=== PATIENT | female | born 1940 | race Caucasian/White ===

== ENCOUNTER 2016-04-15 15:32 | Emergency (ER) | payer MEDICARE, MEDICAID ==
[2016-04-15] MEDS ORDERED: ACETAMINOPHEN 500 MG TABLET ONE (16:10)
[2016-04-15 16:41] LABS: ALB/GLOB RATIO 1.6 (>1.0); ALBUMIN 3.9 gm/dL (3.5-5.7); CALCIUM 9.5 mg/dL (8.6-10.3)
--- NOTE | 2016-04-15 16:46 | RAD ---
Name: TEA HELMS Exam: Two-view chest Comparison: 06/22/2014 Clinical history: Shortness of breath and chest pain Findings: 2 views of the chest are submitted. The heart mediastinum and hilar structures are within normal limits. There is no failure, infiltrate, pleural effusion or pneumothorax. Regional skeleton is within normal limits. There is been prior left shoulder replacement and cervical spine surgery. Impression: No acute cardiopulmonary process
[2016-04-15 16:48] LABS: TROPONIN I < 0.01 ng/ml (0.0-0.06)
[2016-04-15 16:51] LABS: CKMB ISOENZYME 1.2 ng/ml (0.6-6.3)
[2016-04-15 17:05] LABS: SPECIFIC GRAVITY 1.015 (1.001-1.030); URINE BILIRUBIN NEGATIVE (NEGATIVE); URINE BLOOD NEGATIVE (NEGATIVE); URINE GLUCOSE (UA) NEGATIVE (NEGATIVE); URINE LEUKOCYTE ESTERASE NEGATIVE (NEGATIVE); URINE NITRITE NEGATIVE (NEGATIVE); URINE PROTEIN NEGATIVE (NEGATIVE); URINE UROBILINOGEN NORMAL (0-1 mg/dl)
[2016-04-15 17:06] LABS: URINE APPEARANCE CLEAR; URINE COLOR YELLOW
[2016-04-15 17:37] LABS: ABSOLUTE NEUTROPHIL COUNT 3.2 K/mm3 (1.8-7.7); BASO % 0.4 % (0.2-1.0); EOS # 0.1 (0.0-0.5); EOS % 1.2 % (0.9-2.9); HEMATOCRIT 38.8 % (37.0-47.0); HEMOGLOBIN 12.7 gm/l (12.0-16.0); IMM NEUT% 0.2 % (0-1); LYMPH # 1.3 (1.0-4.8); LYMPH % 27.1 % (15-45); MEAN CELL VOLUME 93.7 fl (81.0-99.0); MEAN CORPUSCULAR HEMOGLOBIN 30.7 pg (27.0-31.0); MEAN CORPUSCULAR HGB CONC 32.7 g/dl (33.0-37.0); MEAN PLATELET VOLUME 10.6 fl (7.4-10.4); MONO # 0.4 (0.0-0.8); MONO % 7.3 % (4-12); NEUT % 63.8 % (43-75); PLATELET COUNT 222 K/mm3 (130-400); RED CELL DISTRIBUTION WIDTH 12.9 % (11.5-14.5)
== END 2016-04-15 18:31 | disposition home or self-care (01) ==
LOC: ED 15:32
DX: R53.81 Other malaise (principal); I10 Essential (primary) hypertension; J44.9 Chronic obstructive pulmonary disease, unspecified; G89.29 Other chronic pain; E78.00 Pure hypercholesterolemia, unspecified; F32.9 Major depressive disorder, single episode, unspecified; Z79.899 Other long term (current) drug therapy; Z88.6 Allergy status to analgesic agent; Z88.0 Allergy status to penicillin; Z88.8 Allergy status to other drugs, medicaments and biological substances
CPT/HCPCS: 85025; 82550; 82553; 80053; 81003; 84484; 36415; 71020; 99284; 99283; A9270